=== PATIENT | male | born 1940 | race Caucasian/White ===

== ENCOUNTER 2016-07-26 13:51 | Outpatient (CLI) | payer MEDICARE, OTHER | END 2016-07-26 13:52 | disposition home or self-care (01) | DX: Z79.899 Other long term (current) drug therapy (principal); N40.1 Benign prostatic hyperplasia with lower urinary tract symptoms; E78.5 Hyperlipidemia, unspecified; E55.9 Vitamin D deficiency, unspecified; L40.9 Psoriasis, unspecified ==

== ENCOUNTER 2017-02-04 08:00 | Outpatient (CLI) | payer MEDICARE, OTHER ==
[2017-02-04 12:52] LABS: BASOPHILS % (AUTO) 0.6 %; EOSINOPHILS # (AUTO) 0.3 10^3/uL (0.0-0.7); EOSINOPHILS % (AUTO) 4.7 %; HCT - HEMATOCRIT 44.3 % (42.0-52.0); HGB - HEMOGLOBIN 15.3 g/dL (14.0-18.0); LYMPHOCYTES # (AUTO) 1.7 10^3/uL (1.5-3.5); LYMPHOCYTES % (AUTO) 28.8 %; MEAN CORPUSCULAR HGB CONC 34.4 g/dL (32.0-36.0); MEAN CORPUSCULAR VOLUME 101.6 fL (80.0-94.0); MEAN PLATELET VOLUME 8.2 fL (7.4-11.4); MONOCYTES # (AUTO) 0.4 10^3/uL (0.0-1.0); MONOCYTES % (AUTO) 6.5 %; NEUTROPHILS # (AUTO) 3.4 10^3/uL (1.5-6.6); NEUTROPHILS % (AUTO) 59.4 %; RED BLOOD COUNT 4.36 10^6/uL (4.70-6.10); RED CELL DISTRIBUTION WIDTH 14.2 % (12.0-15.0); UNCORRECTED WHITE BLOOD COUNT 5.8 x10^3/uL; WHITE BLOOD COUNT 5.8 x10^3/uL (4.8-10.8)
[2017-02-04 13:25] LABS: ALBUMIN/GLOBULIN RATIO 1.7 (1.0-2.2); BILIRUBIN,TOTAL 0.9 mg/dL (0.2-1.0); BUN - BLOOD UREA NITROGEN 17 mg/dL (6-20); CARBON DIOXIDE - CO2 26 mmol/L (21-32); CHLORIDE 106 mmol/L (101-111); CHOL/HDL RATIO 3.1 (<5.0); CHOLESTEROL 172 mg/dL; CREATININE 0.6 mg/dL (0.6-1.2); GFR - MDRD 132 (>89); GLUCOSE 95 mg/dL (70-100); HDL CHOLESTEROL 56 mg/dL; LDL/HDL RATIO 1.9 (<3.6); SODIUM 139 mmol/L (135-145); TOTAL PROTEIN 6.5 g/dL (6.7-8.2); TRIGLYCERIDES 57 mg/dL; VLDL CHOLESTEROL 11 mg/dL
== END 2017-02-04 08:01 | disposition home or self-care (01) ==
LOC: LAB.WCP 08:00
PROVIDERS: ATTEND Family Medicine
DX: Z79.899 Other long term (current) drug therapy (principal); E78.5 Hyperlipidemia, unspecified; E55.9 Vitamin D deficiency, unspecified
CPT/HCPCS: 36415; 80053; 80061; 82306; 85025

== ENCOUNTER 2017-12-30 08:05 | Outpatient (CLI) | payer MEDICARE, OTHER ==
[2017-12-30 13:23] LABS: BASOPHILS # (AUTO) 0.1 10^3/uL (0.0-0.1); BASOPHILS % (AUTO) 1.1 %; EOSINOPHILS # (AUTO) 0.3 10^3/uL (0.0-0.7); HGB - HEMOGLOBIN 15.9 g/dL (14.0-18.0); LYMPHOCYTES # (AUTO) 1.8 10^3/uL (1.5-3.5); LYMPHOCYTES % (AUTO) 34.3 %; MEAN CORPUSCULAR HEMOGLOBIN 35.5 pg (27.0-31.0); MEAN CORPUSCULAR HGB CONC 33.8 g/dL (32.0-36.0); MONOCYTES # (AUTO) 0.4 10^3/uL (0.0-1.0); MONOCYTES % (AUTO) 8.3 %; NEUTROPHILS # (AUTO) 2.6 10^3/uL (1.5-6.6); NEUTROPHILS % (AUTO) 50.3 %; PLT - PLATELET COUNT 180 10^3/uL (130-450); RED BLOOD COUNT 4.49 10^6/uL (4.70-6.10); RED CELL DISTRIBUTION WIDTH 13.6 % (12.0-15.0); WHITE BLOOD COUNT 5.1 x10^3/uL (4.8-10.8)
[2017-12-30 13:50] LABS: ALBUMIN 3.9 g/dL (3.2-5.5); ALBUMIN/GLOBULIN RATIO 1.3 (1.0-2.2); BILIRUBIN,TOTAL 1.1 mg/dL (0.2-1.0); CALCIUM 9.3 mg/dL (8.5-10.3); CREATININE 0.7 mg/dL (0.6-1.2); TOTAL PROTEIN 6.8 g/dL (6.7-8.2)
== END 2017-12-30 08:06 | disposition home or self-care (01) ==
LOC: LAB.WCP 08:05
PROVIDERS: ATTEND Family Medicine
DX: L40.9 Psoriasis, unspecified (principal); E78.5 Hyperlipidemia, unspecified; Z79.899 Other long term (current) drug therapy
CPT/HCPCS: 36415; 80053; 85025

== ENCOUNTER 2018-07-24 08:00 | Outpatient (CLI) | payer MEDICARE, OTHER ==
[2018-07-24 13:24] LABS: BASOPHILS % (AUTO) 0.6 %; EOSINOPHILS # (AUTO) 0.2 10^3/uL (0.0-0.7); EOSINOPHILS % (AUTO) 4.7 %; HGB - HEMOGLOBIN 15.5 g/dL (14.0-18.0); LYMPHOCYTES # (AUTO) 1.5 10^3/uL (1.5-3.5); LYMPHOCYTES % (AUTO) 29.1 %; MEAN CORPUSCULAR HEMOGLOBIN 35.6 pg (27.0-31.0); MEAN CORPUSCULAR HGB CONC 34.3 g/dL (32.0-36.0); MEAN CORPUSCULAR VOLUME 103.9 fL (80.0-94.0); MEAN PLATELET VOLUME 8.3 fL (7.4-11.4); MONOCYTES # (AUTO) 0.4 10^3/uL (0.0-1.0); MONOCYTES % (AUTO) 7.8 %; NEUTROPHILS % (AUTO) 57.8 %; PLT - PLATELET COUNT 187 10^3/uL (130-450); RED BLOOD COUNT 4.36 10^6/uL (4.70-6.10); WHITE BLOOD COUNT 5.1 x10^3/uL (4.8-10.8)
[2018-07-24 14:02] LABS: ALBUMIN 4.1 g/dL (3.2-5.5); ALBUMIN/GLOBULIN RATIO 1.6 (1.0-2.2); ALKALINE PHOSPHATASE 82 IU/L (42-121); ALT ALANINE AMINOTRANSFERASE 21 IU/L (10-60); AST ASPARTATE AMINOTRANSFERASE 25 IU/L (10-42); BILIRUBIN,TOTAL 1.2 mg/dL (0.2-1.0); BUN - BLOOD UREA NITROGEN 17 mg/dL (6-20); CALCIUM 9.1 mg/dL (8.5-10.3); CARBON DIOXIDE - CO2 28 mmol/L (21-32); CHLORIDE 105 mmol/L (101-111); CHOL/HDL RATIO 3.1 (<5.0); CHOLESTEROL 187 mg/dL; CREATININE 0.7 mg/dL (0.6-1.2); GFR - MDRD 110 (>89); GLUCOSE 95 mg/dL (70-100); HDL CHOLESTEROL 61 mg/dL; LDL CHOLESTEROL,CALCULATED 114 mg/dL; LDL/HDL RATIO 1.9 (<3.6); SODIUM 138 mmol/L (135-145); TOTAL PROTEIN 6.6 g/dL (6.7-8.2); VLDL CHOLESTEROL 12 mg/dL
== END 2018-07-24 23:59 | disposition home or self-care (01) ==
LOC: LAB.WCP 08:00
PROVIDERS: ATTEND Family Medicine
DX: Z79.899 Other long term (current) drug therapy (principal); E78.5 Hyperlipidemia, unspecified
CPT/HCPCS: 36415; 80053; 80061; 83721; 84443; 85025

== ENCOUNTER 2019-02-19 09:12 | Outpatient (CLI) | payer MEDICARE, OTHER ==
[2019-02-19 13:38] LABS: HB2 TOTAL 15.5 g/dL; HEMOGLOBIN A1C 0.52 g/dL; HEMOGLOBIN A1C % 5.2 % (4.6-6.2)
== END 2019-02-19 23:59 | disposition home or self-care (01) ==
LOC: LAB.N 09:12
PROVIDERS: ATTEND Family Medicine
DX: E78.5 Hyperlipidemia, unspecified (principal); Z13.1 Encounter for screening for diabetes mellitus; Z79.899 Other long term (current) drug therapy
CPT/HCPCS: 36415; 83036

== ENCOUNTER 2019-11-05 07:07 | Outpatient (CLI) | payer MEDICARE, OTHER ==
[2019-11-05 12:54] LABS: BASOPHILS % (AUTO) 0.5 %; EOSINOPHILS # (AUTO) 0.4 10^3/uL (0.0-0.7); EOSINOPHILS % (AUTO) 6.3 %; HGB - HEMOGLOBIN 15.8 g/dL (14.0-18.0); LYMPHOCYTES # (AUTO) 1.7 10^3/uL (1.5-3.5); LYMPHOCYTES % (AUTO) 27.4 %; MEAN CORPUSCULAR HGB CONC 34.7 g/dL (32.0-36.0); MEAN CORPUSCULAR VOLUME 103.6 fL (80.0-94.0); MEAN PLATELET VOLUME 10.2 fL (7.4-11.4); MONOCYTES # (AUTO) 0.4 10^3/uL (0.0-1.0); MONOCYTES % (AUTO) 7.3 %; NEUTROPHILS # (AUTO) 3.5 10^3/uL (1.5-6.6); NEUTROPHILS % (AUTO) 58.2 %; PLT - PLATELET COUNT 196 10^3/uL (130-450); RED BLOOD COUNT 4.39 10^6/uL (4.70-6.10); RED CELL DISTRIBUTION WIDTH 13.9 % (12.0-15.0); WHITE BLOOD COUNT 6.1 x10^3/uL (4.8-10.8)
[2019-11-05 13:43] LABS: ALBUMIN 4.2 g/dL (3.2-5.5); ALBUMIN/GLOBULIN RATIO 1.5 (1.0-2.2); ALKALINE PHOSPHATASE 91 IU/L (42-121); ALT ALANINE AMINOTRANSFERASE 22 IU/L (10-60); AST ASPARTATE AMINOTRANSFERASE 26 IU/L (10-42); BILIRUBIN,TOTAL 1.2 mg/dL (0.2-1.0); BUN - BLOOD UREA NITROGEN 20 mg/dL (6-20); CALCIUM 9.2 mg/dL (8.5-10.3); CARBON DIOXIDE - CO2 27 mmol/L (21-32); CHLORIDE 104 mmol/L (101-111); CHOL/HDL RATIO 3.2 (<5.0); CHOLESTEROL 200 mg/dL; CREATININE 0.8 mg/dL (0.6-1.2); GLUCOSE 88 mg/dL (70-100); HDL CHOLESTEROL 62 mg/dL; LDL CHOLESTEROL,CALCULATED 126 mg/dL; SODIUM 139 mmol/L (135-145); VLDL CHOLESTEROL 12 mg/dL
== END 2019-11-05 23:59 | disposition home or self-care (01) ==
LOC: LAB.WCP 07:07
PROVIDERS: ATTEND Family Medicine
DX: E55.9 Vitamin D deficiency, unspecified (principal); E78.5 Hyperlipidemia, unspecified; N40.1 Benign prostatic hyperplasia with lower urinary tract symptoms
CPT/HCPCS: 36415; 80053; 80061; 83721; 84153; 84443; 85025

== ENCOUNTER 2020-04-07 08:00 | Outpatient (CLI) | payer MEDICARE, OTHER ==
[2020-04-07 11:22] LABS: BASOPHILS % (AUTO) 0.8 %; EOSINOPHILS # (AUTO) 0.2 10^3/uL (0.0-0.7); EOSINOPHILS % (AUTO) 3.2 %; HGB - HEMOGLOBIN 15.2 g/dL (14.0-18.0); LYMPHOCYTES # (AUTO) 1.4 10^3/uL (1.5-3.5); LYMPHOCYTES % (AUTO) 27.4 %; MEAN CORPUSCULAR HEMOGLOBIN 35.3 pg (27.0-31.0); MEAN CORPUSCULAR HGB CONC 34.4 g/dL (32.0-36.0); MEAN CORPUSCULAR VOLUME 102.6 fL (80.0-94.0); MEAN PLATELET VOLUME 9.9 fL (7.4-11.4); MONOCYTES # (AUTO) 0.4 10^3/uL (0.0-1.0); MONOCYTES % (AUTO) 7.5 %; NEUTROPHILS # (AUTO) 3.1 10^3/uL (1.5-6.6); NEUTROPHILS % (AUTO) 60.7 %; PLT - PLATELET COUNT 181 10^3/uL (130-450); RED BLOOD COUNT 4.31 10^6/uL (4.70-6.10); RED CELL DISTRIBUTION WIDTH 13.6 % (12.0-15.0); WHITE BLOOD COUNT 5.1 x10^3/uL (4.8-10.8)
[2020-04-07 12:11] LABS: ALBUMIN 4.1 g/dL (3.2-5.5); ALBUMIN/GLOBULIN RATIO 1.6 (1.0-2.2); ALKALINE PHOSPHATASE 96 IU/L (42-121); ALT ALANINE AMINOTRANSFERASE 19 IU/L (10-60); AST ASPARTATE AMINOTRANSFERASE 23 IU/L (10-42); BILIRUBIN,TOTAL 1.1 mg/dL (0.2-1.0); BUN - BLOOD UREA NITROGEN 17 mg/dL (6-20); CALCIUM 9.2 mg/dL (8.5-10.3); CARBON DIOXIDE - CO2 29 mmol/L (21-32); CHLORIDE 103 mmol/L (101-111); CHOLESTEROL 182 mg/dL; CREATININE 0.8 mg/dL (0.6-1.2); GLUCOSE 95 mg/dL (70-100); HDL CHOLESTEROL 60 mg/dL; LDL CHOLESTEROL,CALCULATED 110 mg/dL; LDL/HDL RATIO 1.8 (<3.6); SODIUM 139 mmol/L (135-145); TOTAL PROTEIN 6.7 g/dL (6.7-8.2); VLDL CHOLESTEROL 12 mg/dL
== END 2020-04-07 23:59 | disposition home or self-care (01) ==
LOC: LAB.WCP 08:00
PROVIDERS: ATTEND Family Medicine
DX: E78.5 Hyperlipidemia, unspecified (principal); N40.1 Benign prostatic hyperplasia with lower urinary tract symptoms; N13.8 Other obstructive and reflux uropathy
CPT/HCPCS: 36415; 80053; 80061; 83721; 84153; 84443; 85025

== ENCOUNTER 2020-06-09 08:31 | Outpatient (CLI) | payer MEDICARE, OTHER ==
--- NOTE | 2020-06-09 15:21 | XRAY Report ---
PROCEDURE: Shoulder 3 View BILAT INDICATIONS: LEFT AND RIGHT SHOULDER IMPINGEMENT SYNDROME TECHNIQUE: 3 views of the shoulder were acquired. COMPARISON: None. FINDINGS: Bones: No fractures or dislocations. There is mild to moderate, clavicular joint degeneration. No vila spicious bony lesions. Visualized ribs appear intact. Soft tissues: No suspicious soft tissue calcifications. IMPRESSION: 1. 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 Reviewed by: Keo Gordillo MD on 06/09/2020 3:20 PM [facility]UST Approved by: Keo Gordillo MD on 06/09/2020 3:20 PM [facility]UST Station ID: [id number]
== END 2020-06-09 23:59 | disposition home or self-care (01) ==
LOC: DI.WCP 08:31
PROVIDERS: ATTEND Physician Assistant Medical
DX: M75.41 Impingement syndrome of right shoulder (principal); M75.42 Impingement syndrome of left shoulder; M19.012 Primary osteoarthritis, left shoulder; M19.011 Primary osteoarthritis, right shoulder

== ENCOUNTER 2020-07-18 08:00 | Outpatient (CLI) | payer MEDICARE, OTHER | END 2020-07-18 23:59 | disposition home or self-care (01) | LOC: LAB.WCP 08:00 | PROVIDERS: ATTEND Physician Assistant | DX: L40.0 Psoriasis vulgaris (principal); L40.59 Other psoriatic arthropathy; Z79.899 Other long term (current) drug therapy | CPT/HCPCS: 36415; 81599; 86480 ==

== ENCOUNTER 2022-07-04 13:29 | Outpatient (CLI) | payer MEDICARE, OTHER ==
[2022-07-04 17:45] LABS: BASOPHILS % (AUTO) 0.6 %; EOSINOPHILS # (AUTO) 0.2 10^3/uL (0.0-0.7); EOSINOPHILS % (AUTO) 3.3 %; HCT - HEMATOCRIT 42.1 % (42.0-52.0); HGB - HEMOGLOBIN 14.1 g/dL (14.0-18.0); LYMPHOCYTES # (AUTO) 1.3 10^3/uL (1.5-3.5); LYMPHOCYTES % (AUTO) 24.7 %; MEAN CORPUSCULAR HEMOGLOBIN 34.2 pg (27.0-31.0); MEAN CORPUSCULAR HGB CONC 33.5 g/dL (32.0-36.0); MEAN CORPUSCULAR VOLUME 102.2 fL (80.0-94.0); MEAN PLATELET VOLUME 9.8 fL (7.4-11.4); MONOCYTES # (AUTO) 0.5 10^3/uL (0.0-1.0); MONOCYTES % (AUTO) 8.7 %; NEUTROPHILS # (AUTO) 3.4 10^3/uL (1.5-6.6); NEUTROPHILS % (AUTO) 62.5 %; PLT - PLATELET COUNT 205 10^3/uL (130-450); RED BLOOD COUNT 4.12 10^6/uL (4.70-6.10); RED CELL DISTRIBUTION WIDTH 13.4 % (12.0-15.0); WHITE BLOOD COUNT 5.4 x10^3/uL (4.8-10.8)
[2022-07-04 18:01] LABS: ALBUMIN/GLOBULIN RATIO 1.5 (1.0-2.2); ALKALINE PHOSPHATASE 101 IU/L (42-121); ALT ALANINE AMINOTRANSFERASE 21 IU/L (10-60); AST ASPARTATE AMINOTRANSFERASE 28 IU/L (10-42); BILIRUBIN,TOTAL 0.8 mg/dL (0.2-1.0); BUN - BLOOD UREA NITROGEN 18 mg/dL (6-20); CALCIUM 8.9 mg/dL (8.5-10.3); CARBON DIOXIDE - CO2 29 mmol/L (21-32); CHLORIDE 102 mmol/L (101-111); CHOLESTEROL 161 mg/dL; CREATININE 0.9 mg/dL (0.6-1.2); GFR - MDRD 81 (>89); GLUCOSE 94 mg/dL (70-100); HDL CHOLESTEROL 54 mg/dL; LDL CHOLESTEROL,CALCULATED 96 mg/dL; LDL/HDL RATIO 1.8 (<3.6); POTASSIUM 4.1 mmol/L (3.5-5.0); SODIUM 136 mmol/L (135-145); TOTAL PROTEIN 6.7 g/dL (6.7-8.2); TRIGLYCERIDES 55 mg/dL; VLDL CHOLESTEROL 11 mg/dL
== END 2022-07-04 13:30 | disposition home or self-care (01) ==
LOC: LAB.N 13:29
PROVIDERS: ATTEND Physician Assistant Medical
DX: E78.5 Hyperlipidemia, unspecified (principal); L40.9 Psoriasis, unspecified
CPT/HCPCS: 36415; 80053; 80061; 83721; 85025

== ENCOUNTER 2022-11-11 12:44 | Outpatient (CLI) | payer MEDICARE, OTHER ==
[2022-11-11 17:47] LABS: BASOPHILS % (AUTO) 0.7 %; EOSINOPHILS # (AUTO) 0.3 10^3/uL (0.0-0.7); EOSINOPHILS % (AUTO) 5.5 %; HCT - HEMATOCRIT 44.9 % (42.0-52.0); HGB - HEMOGLOBIN 15.1 g/dL (14.0-18.0); LYMPHOCYTES # (AUTO) 1.1 10^3/uL (1.5-3.5); LYMPHOCYTES % (AUTO) 19.5 %; MEAN CORPUSCULAR HEMOGLOBIN 34.1 pg (27.0-31.0); MEAN CORPUSCULAR HGB CONC 33.6 g/dL (32.0-36.0); MEAN CORPUSCULAR VOLUME 101.4 fL (80.0-94.0); MEAN PLATELET VOLUME 9.5 fL (7.4-11.4); MONOCYTES # (AUTO) 0.5 10^3/uL (0.0-1.0); MONOCYTES % (AUTO) 8.4 %; NEUTROPHILS # (AUTO) 3.9 10^3/uL (1.5-6.6); NEUTROPHILS % (AUTO) 65.7 %; PLT - PLATELET COUNT 202 10^3/uL (130-450); RED BLOOD COUNT 4.43 10^6/uL (4.70-6.10); RED CELL DISTRIBUTION WIDTH 13.5 % (12.0-15.0); WHITE BLOOD COUNT 5.9 x10^3/uL (4.8-10.8)
[2022-11-11 18:01] LABS: ALBUMIN 3.9 g/dL (3.2-5.5); ALKALINE PHOSPHATASE 104 IU/L (42-121); ALT ALANINE AMINOTRANSFERASE 25 IU/L (10-60); AST ASPARTATE AMINOTRANSFERASE 29 IU/L (10-42); BILIRUBIN,DIRECT 0.2 mg/dL (0.1-0.5); BUN - BLOOD UREA NITROGEN 21 mg/dL (6-20); CALCIUM 9.2 mg/dL (8.5-10.3); CARBON DIOXIDE - CO2 29 mmol/L (21-32); CHLORIDE 107 mmol/L (101-111); CHOL/HDL RATIO 3.2 (<5.0); CHOLESTEROL 167 mg/dL; CREATININE 0.8 mg/dL (0.6-1.2); GFR - MDRD 93 (>89); GLUCOSE 98 mg/dL (70-100); HDL CHOLESTEROL 52 mg/dL; LDL CHOLESTEROL,CALCULATED 93 mg/dL; LDL/HDL RATIO 1.8 (<3.6); POTASSIUM 4.2 mmol/L (3.5-5.0); SODIUM 139 mmol/L (135-145); TRIGLYCERIDES 109 mg/dL; VLDL CHOLESTEROL 22 mg/dL
[2022-11-12 02:07] LABS: HCV AB Non Reactive (Non Reactive)
[2022-11-12 03:10] LABS: HBsAG SCREEN Negative (Negative); HEPATITIS B SURFACE AB QUANT <3.1 mIU/mL (Immunity>9.9)
== END 2022-11-11 12:45 | disposition home or self-care (01) ==
LOC: LAB.N 12:44
PROVIDERS: ATTEND Nurse Practitioner
DX: Z79.899 Other long term (current) drug therapy (principal)
CPT/HCPCS: 36415; 80048; 80061; 80076; 81599; 83721; 85025; 86317; 86480; 86704; 86803; 87340

== ENCOUNTER 2023-01-24 07:59 | Outpatient (CLI) | payer MEDICARE, OTHER ==
[2023-01-24 13:17] LABS: ALBUMIN/GLOBULIN RATIO 1.5 (1.0-2.2); ALKALINE PHOSPHATASE 115 IU/L (42-121); ALT ALANINE AMINOTRANSFERASE 16 IU/L (10-60); AST ASPARTATE AMINOTRANSFERASE 19 IU/L (10-42); BILIRUBIN,TOTAL 1.2 mg/dL (0.2-1.0); BUN - BLOOD UREA NITROGEN 14 mg/dL (6-20); CALCIUM 9.3 mg/dL (8.5-10.3); CARBON DIOXIDE - CO2 30 mmol/L (21-32); CHLORIDE 107 mmol/L (101-111); CHOL/HDL RATIO 2.9 (<5.0); CHOLESTEROL 154 mg/dL; CREATININE 0.7 mg/dL (0.6-1.3); GFR - MDRD 109 (>89); GLUCOSE 91 mg/dL (74-104); HDL CHOLESTEROL 53 mg/dL; LDL CHOLESTEROL,CALCULATED 92 mg/dL; LDL/HDL RATIO 1.7 (<3.6); POTASSIUM 4.3 mmol/L (3.5-4.5); SODIUM 138 mmol/L (135-145); TOTAL PROTEIN 6.7 g/dL (6.4-8.9); TRIGLYCERIDES 45 mg/dL (48-352); VLDL CHOLESTEROL 9 mg/dL
== END 2023-01-24 08:00 | disposition home or self-care (01) ==
LOC: LAB.N 07:59
PROVIDERS: ATTEND Physician Assistant Medical
DX: E78.5 Hyperlipidemia, unspecified (principal)
CPT/HCPCS: 36415; 80053; 80061; 83721

== ENCOUNTER 2023-02-20 13:19 | Outpatient (CLI) | payer MEDICARE, OTHER ==
[2023-02-20 17:42] LABS: BASOPHILS # (AUTO) 0.1 10^3/uL (0.0-0.1); BASOPHILS % (AUTO) 0.8 %; EOSINOPHILS # (AUTO) 0.2 10^3/uL (0.0-0.7); EOSINOPHILS % (AUTO) 3.9 %; HCT - HEMATOCRIT 42.5 % (42.0-52.0); HGB - HEMOGLOBIN 14.5 g/dL (14.0-18.0); LYMPHOCYTES # (AUTO) 1.6 10^3/uL (1.5-3.5); LYMPHOCYTES % (AUTO) 27.1 %; MEAN CORPUSCULAR HGB CONC 34.1 g/dL (32.0-36.0); MEAN CORPUSCULAR VOLUME 102.7 fL (80.0-94.0); MEAN PLATELET VOLUME 9.5 fL (7.4-11.4); MONOCYTES # (AUTO) 0.5 10^3/uL (0.0-1.0); MONOCYTES % (AUTO) 8.1 %; NEUTROPHILS # (AUTO) 3.5 10^3/uL (1.5-6.6); NEUTROPHILS % (AUTO) 59.9 %; PLT - PLATELET COUNT 189 10^3/uL (130-450); RED BLOOD COUNT 4.14 10^6/uL (4.70-6.10); RED CELL DISTRIBUTION WIDTH 13.6 % (12.0-15.0); WHITE BLOOD COUNT 5.9 x10^3/uL (4.8-10.8)
[2023-02-20 17:58] LABS: ALBUMIN 4.1 g/dL (3.2-5.5); ALBUMIN/GLOBULIN RATIO 1.6 (1.0-2.2); BILIRUBIN,DIRECT 0.16 mg/dL (0.03-0.18); BILIRUBIN,TOTAL 0.8 mg/dL (0.2-1.0); CALCIUM 9.4 mg/dL (8.5-10.3); CREATININE 0.8 mg/dL (0.6-1.3); POTASSIUM 4.1 mmol/L (3.5-4.5); TOTAL PROTEIN 6.7 g/dL (6.4-8.9)
== END 2023-02-20 13:20 | disposition home or self-care (01) ==
LOC: LAB.N 13:19
PROVIDERS: ATTEND Physician Assistant Medical
DX: L40.0 Psoriasis vulgaris (principal)
CPT/HCPCS: 36415; 80053; 82248; 85025

== ENCOUNTER 2023-08-13 07:27 | Outpatient (CLI) | payer MEDICARE, OTHER ==
[2023-08-13 12:18] LABS: BASOPHILS % (AUTO) 0.6 %; EOSINOPHILS # (AUTO) 0.3 10^3/uL (0.0-0.7); EOSINOPHILS % (AUTO) 5.5 %; HCT - HEMATOCRIT 45.8 % (42.0-52.0); HGB - HEMOGLOBIN 15.5 g/dL (14.0-18.0); LYMPHOCYTES # (AUTO) 1.6 10^3/uL (1.5-3.5); LYMPHOCYTES % (AUTO) 30.3 %; MEAN CORPUSCULAR HEMOGLOBIN 34.7 pg (27.0-31.0); MEAN CORPUSCULAR HGB CONC 33.8 g/dL (32.0-36.0); MEAN CORPUSCULAR VOLUME 102.5 fL (80.0-94.0); MONOCYTES # (AUTO) 0.4 10^3/uL (0.0-1.0); MONOCYTES % (AUTO) 8.2 %; NEUTROPHILS # (AUTO) 2.8 10^3/uL (1.5-6.6); NEUTROPHILS % (AUTO) 55.2 %; PLT - PLATELET COUNT 197 10^3/uL (130-450); RED BLOOD COUNT 4.47 10^6/uL (4.70-6.10); RED CELL DISTRIBUTION WIDTH 13.3 % (12.0-15.0); WHITE BLOOD COUNT 5.1 x10^3/uL (4.8-10.8)
[2023-08-13 13:00] LABS: ALBUMIN 4.2 g/dL (3.2-5.5); ALBUMIN/GLOBULIN RATIO 1.5 (1.0-2.2); ALKALINE PHOSPHATASE 103 IU/L (42-121); ALT ALANINE AMINOTRANSFERASE 19 IU/L (10-60); AST ASPARTATE AMINOTRANSFERASE 23 IU/L (10-42); BILIRUBIN,TOTAL 1.3 mg/dL (0.2-1.0); BUN - BLOOD UREA NITROGEN 19 mg/dL (6-20); CALCIUM 9.7 mg/dL (8.5-10.3); CARBON DIOXIDE - CO2 31 mmol/L (21-32); CHLORIDE 107 mmol/L (101-111); CHOL/HDL RATIO 2.8 (<5.0); CHOLESTEROL 164 mg/dL; CREATININE 0.8 mg/dL (0.6-1.3); GFR - MDRD 93 (>89); GLUCOSE 92 mg/dL (74-104); HDL CHOLESTEROL 58 mg/dL; LDL CHOLESTEROL,CALCULATED 94 mg/dL; LDL/HDL RATIO 1.6 (<3.6); POTASSIUM 4.2 mmol/L (3.5-4.5); SODIUM 141 mmol/L (135-145); TRIGLYCERIDES 58 mg/dL (48-352); VLDL CHOLESTEROL 12 mg/dL
[2023-08-13 13:12] LABS: THYROID STIMULATING HORMONE 3.41 uIU/mL (0.34-5.60)
== END 2023-08-13 07:28 | disposition home or self-care (01) ==
LOC: LAB.N 07:27
PROVIDERS: ATTEND Physician Assistant Medical
DX: I48.91 Unspecified atrial fibrillation (principal)
CPT/HCPCS: 36415; 80053; 80061; 83721; 84443; 85025

== ENCOUNTER 2023-09-09 08:11 | Outpatient (CLI) | payer MEDICARE, OTHER ==
--- NOTE | 2023-09-09 14:01 | CT Report ---
PROCEDURE: Head WO INDICATIONS: VISUAL CHANGES, VISUAL DISTURBANCE TECHNIQUE: Noncontrast 4.5 mm thick angled axial sections acquired from the foramen magnum to the vertex. For r adiation dose reduction, the following was used: automated exposure control, adjustment of mA and/or kV according to patient size. COMPARISON: CT head 06/10/2013 FINDINGS: Image quality: Excellent. The ventricular system and cortical sulci demonstrate atrophy, consistent for patient's stated age. There are areas of hypodensity in the periventricular and subcortical white matter. There is no acut e intra or extra-axial fluid collection. No acute hemorrhage, mass lesion or midline shift. Brainst em is unremarkable. Globes are symmetrical. Sinuses are aerated. Osseous structures are intact. IMPRESSION: 1. No acute intracranial process. 2. Mild atrophy and chronic microvascular ischemic changes. Reviewed by: Mirna Eden MD on 09/09/2023 2:00 PM PDT Approved by: Mirna Eden MD on 09/09/2023 2:00 PM PDT Station ID: [id number]
--- NOTE | 2023-09-09 17:27 | Ultrasound Report ---
PROCEDURE: Carotid Doppler Complete INDICATIONS: VISUAL CHANGES, VISUAL DISTURBANCE TECHNIQUE: Color and pulse Doppler interrogation was performed of both carotid systems, with image documentation and velocity measurements. COMPARISON: None. FINDINGS: Irregular heartbeat per timber killer. Right side: Brachial blood pressure: 147 mm Hg. Common carotid artery peak systolic velocity: 62 cm/sec. Internal carotid artery peak systolic velocity: 61 cm/sec. Internal carotid artery end diastolic velocity: 21 cm/sec. External carotid artery peak systolic velocity: 69 cm/sec. ICA/CCA peak systolic ratio: 0.98 . Olivier scale imaging description: Mild atherosclerotic plaque. Percent internal carotid artery stenosis: Less than 50 percent stenosis. Vertebral artery: Flow direction is antegrade. Left side: Brachial blood pressure: 137 mm Hg. Common carotid artery peak systolic velocity: 63 cm/sec. Internal carotid artery peak systolic velocity: 69 cm/sec. Internal carotid artery end diastolic velocity: 21 cm/sec. External carotid artery peak systolic velocity: 65 cm/sec. ICA/CCA peak systolic ratio: 1.1 . Olivier scale imaging description: Mild atherosclerotic plaque. Percent internal carotid artery stenosis: Less than 50 percent stenosis. Vertebral artery: Flow direction is antegrade. IMPRESSION: 1. In the right internal carotid artery, there is less than 50 percent stenosis based on peak systoli c velocity criteria. 2. In the left internal carotid artery, there is less than 50 percent stenosis based on peak systolic velocity criteria. 3. Antegrade blood flow within the right vertebral artery. 4. Antegrade blood flow within the left vertebral artery. 5. Irregular heartbeat per timber killer. Recommend a formal EKG if there is no known diagnosis. The estimate of stenosis included in the report of the imaging study was calculated using the [facility]-end orsed standards of carotid artery stenosis. Reviewed by: Luz Maria Harris MD on 09/09/2023 5:25 PM PDT Approved by: Luz Maria Harris MD on 09/09/2023 5:25 PM PDT Station ID: [id number]
== END 2023-09-09 08:12 | disposition home or self-care (01) ==
LOC: DI 08:11
PROVIDERS: ATTEND Physician Assistant Medical
DX: H53.9 Unspecified visual disturbance (principal); H53.8 Other visual disturbances; I49.9 Cardiac arrhythmia, unspecified
CPT/HCPCS: 93880

== ENCOUNTER 2023-09-10 07:54 | Outpatient (CLI) | payer MEDICARE, OTHER | END 2023-09-10 07:55 | disposition home or self-care (01) | LOC: DI 07:54 | PROVIDERS: ATTEND Physician Assistant Medical | DX: H53.9 Unspecified visual disturbance (principal); I08.1 Rheumatic disorders of both mitral and tricuspid valves; I48.91 Unspecified atrial fibrillation | CPT/HCPCS: 93307 ==